=== PATIENT | female | born 1960 ===

== ENCOUNTER 2017-09-05 13:51 | Emergency (ER) | payer OTHER ==
--- NOTE | 2017-09-05 14:28 | UC ---
UC General HPI - HPI Summary HPI Summary: pt states hx of depression. takes abilify daily. is switching providers and ran out. she is requesting a refill. not suicidal or homicidal. - History of Current Complaint Chief Complaint: UCMedRefill Stated Complaint: MED REFILL Time Seen by Provider: 09/05/17 14:19 Hx Obtained From: Patient - Allergy/Home Medications Allergies/Adverse Reactions: Allergies Allergy/AdvReac Type Severity Reaction Status Date / Time Penicillins Allergy Vomiting Verified 09/05/17 14:19 Home Medications: Home Medications ARIPiprazole TAB* [Abilify TAB*] 10 mg PO DAILY 09/05/17 [History Confirmed ] FLUoxetine CAP* [PROzac CAP*] 60 mg PO DAILY 09/05/17 [History Confirmed ] PMH/Surg Hx/FS Hx/Imm Hx Endocrine History: Dyslipidemia Psychological History: Depression - Surgical History Surgical History: Yes - ovary, breast - Family History Known Family History: Positive: Other - [place] - Social History Occupation: Employed Part-time Lives: Alone Review of Systems Constitutional: Negative Skin: Negative Eyes: Negative ENT: Negative Respiratory: Negative Cardiovascular: Negative Gastrointestinal: Negative Genitourinary: Negative Motor: Negative Neurovascular: Negative Musculoskeletal: Negative Neurological: Negative Psychological: Depressed - hx but not suicidal Is Patient Immunocompromised?: No All Other Systems Reviewed And Are Negative: Yes Physical Exam Triage Information Reviewed: Yes Appearance: Well-Appearing Vital Signs Reviewed: Yes Eyes: Positive: Conjunctiva Clear ENT: Positive: Normal ENT inspection Neck: Positive: Supple, Nontender, No Lymphadenopathy Respiratory: Positive: Lungs clear, Normal breath sounds Cardiovascular: Positive: RRR, No Murmur Abdomen Description: Positive: Nontender, No Organomegaly, Soft Bowel Sounds: Positive: Present Musculoskeletal: Positive: ROM Intact Neurological: Positive: Alert Psychological: Positive: Age Appropriate Behavior Skin Exam: Normal Course/Dx - Differential Dx - Multi-Symptom Provider Diagnoses: medication refill Discharge - Sign-Out/Discharge Documenting (check all that apply): Discharge - Discharge Plan Condition: Stable Disposition: HOME Prescriptions: ARIPiprazole TAB* [Abilify TAB*] 10 mg PO DAILY #14 tab Patient Education Materials: Medicine Refill (ED) Referrals: Lucretia Clark PA [Primary Care Provider] - As Soon As Possible - Billing Disposition and Condition Condition: STABLE Disposition: HOME
[2017-09-05 14:30] VITALS: BP 130/74
== END 2017-09-05 14:36 | disposition home or self-care (01) ==
LOC: UCCORT 13:51
DX: F32.9 Major depressive disorder, single episode, unspecified (principal); Z88.0 Allergy status to penicillin
CPT/HCPCS: 99212; G0463